=== PATIENT | male | born 1960 | race Caucasian/White ===

== ENCOUNTER 2017-02-09 06:46 | Day surgery (SDC) | payer OTHER ==
[2017-02-09] MEDS ORDERED: FENTANYL 100 MCG/2 ML VIAL ONE (08:12)
[2017-02-09] MEDS ORDERED: LACTATED RINGERS 1,000 ML IV SCH (08:45)
[2017-02-09] MEDS ORDERED: PROPOFOL 20 ML IV ONE (09:33)
== END 2017-02-09 09:22 | disposition home or self-care (01) ==
LOC: SDC 06:46
PROVIDERS: ATTEND Surgery
DX: Z12.11 Encounter for screening for malignant neoplasm of colon (principal); K57.30 Diverticulosis of large intestine without perforation or abscess without bleeding
CPT/HCPCS: 45378; J3010